=== PATIENT | male | born 1945 | race Caucasian/White ===

== ENCOUNTER → 2019-06-27 | Outpatient (CLI) | payer MEDICARE, BC ==
[~2019-06-27] MED LIST: AMLO5; ASPI81EC; ATEN25; BUSP10 PO; CEPH500 PO; CITA20; DOXA4 PO; ETOD500; EZET10; IBUP600; MAGNESIUM250 MG PO; MED FOR ANXIETY; Norco 5-325 Ta1 EACH PO; OMEG1CAP30; OXYACE5T PO; TRIHYD; TRIHYD253A PO; Vitamin B Comple1 EA; WELCHOL3.75 GM
[2019-06-27 13:54] LABS: Stool Occult Bld Immuno 1 Negative (NEGATIVE)
== END | disposition home or self-care (01) ==
LOC: OLS 09:00 → LAB SHORT 09:00
PROVIDERS: Nurse Practitioner Family
DX: R19.5 Other fecal abnormalities (principal)
CPT/HCPCS: 82274

== ENCOUNTER 2020-05-28 11:24 | Day surgery (SDC) | payer MEDICARE, BC ==
[~2020-05-28] VITALS: Ht 177.8 cm; Wt 83.8 kg
[~2020-05-28 11:24] MED LIST changes: +ASPI325 PO; +EZET10 PO; +FERROUS SULFAT325 M3 PO; +OMEGA-3 FISH O1 EAC6 PO; +Vitamin B Comple1 EA PO
== END 2020-05-28 13:14 | disposition home or self-care (01) ==
LOC: ORSCSDS 11:24
PROVIDERS: Student in an Organized Health Care Education/Training Program
PROC: 0DB48ZX Excision of Esophagogastric Junction, Via Natural or Artificial Opening Endoscopic, Diagnostic (ICD-10-PCS; principal; 2020-05-28 12:45)
PROC: 0DBK8ZX Excision of Ascending Colon, Via Natural or Artificial Opening Endoscopic, Diagnostic (ICD-10-PCS; principal; 2020-05-28 12:45)
PROC: 0DBN8ZX Excision of Sigmoid Colon, Via Natural or Artificial Opening Endoscopic, Diagnostic (ICD-10-PCS; principal; 2020-05-28 12:45)
PROC: 0DBH8ZX Excision of Cecum, Via Natural or Artificial Opening Endoscopic, Diagnostic (ICD-10-PCS; principal; 2020-05-28 12:45)
DX: K21.9 Gastro-esophageal reflux disease without esophagitis (principal); R13.10 Dysphagia, unspecified; Z12.11 Encounter for screening for malignant neoplasm of colon; Z86.010 Personal history of colon polyps; D12.0 Benign neoplasm of cecum; D12.2 Benign neoplasm of ascending colon; D12.5 Benign neoplasm of sigmoid colon; K44.9 Diaphragmatic hernia without obstruction or gangrene; K22.2 Esophageal obstruction; K64.4 Residual hemorrhoidal skin tags; K57.30 Diverticulosis of large intestine without perforation or abscess without bleeding; Z79.899 Other long term (current) drug therapy; Z79.82 Long term (current) use of aspirin; Z87.891 Personal history of nicotine dependence; I10 Essential (primary) hypertension; Z85.46 Personal history of malignant neoplasm of prostate
CPT/HCPCS: 88305; J2704; J7040; J7120

== ENCOUNTER 2021-05-20 08:09 | Day surgery (SDC) | payer MEDICARE, BC ==
[~2021-05-20] VITALS: Ht 177.8 cm; Wt 89.0 kg
[2021-05-20] MEDS ORDERED: CITALOPRAM HBR10 MG (08:35)
[2021-05-20] MEDS ORDERED: LOSA25 (08:35)
[2021-05-20] MEDS ORDERED: METO25ER (08:35)
[2021-05-20] MEDS ORDERED: ELIQUIS5 M2 (08:36)
[2021-05-20] MEDS ORDERED: OMEP20ER (08:36)
--- NOTE | 2021-05-20 08:43 | NUR ---
05/20/21 0843 Gwendolyn Conteh TETRACAINE AND PLEDGET PLACED IN RIGHT EYE BY [email or web address]
== END 2021-05-20 09:20 | disposition home or self-care (01) ==
LOC: ORSCSDS 08:09
PROVIDERS: Ophthalmology
PROC: 08RJ3JZ Replacement of Right Lens with Synthetic Substitute, Percutaneous Approach (ICD-10-PCS; principal; 2021-05-20 09:30)
DX: H25.13 Age-related nuclear cataract, bilateral (principal); I10 Essential (primary) hypertension; I48.91 Unspecified atrial fibrillation; E11.9 Type 2 diabetes mellitus without complications; Z79.01 Long term (current) use of anticoagulants; Z87.891 Personal history of nicotine dependence; Z79.899 Other long term (current) drug therapy; Z79.82 Long term (current) use of aspirin
CPT/HCPCS: J2001; J2250; J3010; J3301; J7040; V2632

== ENCOUNTER 2021-06-24 07:44 | Day surgery (SDC) | payer MEDICARE, BC ==
[~2021-06-24] VITALS: Ht 177.8 cm; Wt 89.7 kg
[~2021-06-24 07:44] MED LIST changes: +CITALOPRAM HBR10 MG; +ELIQUIS5 M2; +LOSA25; +METO25ER; +OMEP20ER
[2021-06-24] MEDS ORDERED: ELIQUIS5 M2 PO (08:02)
--- NOTE | 2021-06-24 08:09 | NUR ---
06/24/21 0809 Bk Michel CALL LIGHT WITHIN REACH. PLEDGETT DROPAT 0803, TETRACAINE DROP AT 0800
== END 2021-06-24 09:32 | disposition home or self-care (01) ==
LOC: ORSCSDS 07:44
PROVIDERS: Ophthalmology
PROC: 08RK3JZ Replacement of Left Lens with Synthetic Substitute, Percutaneous Approach (ICD-10-PCS; principal; 2021-06-24 09:00)
DX: H25.12 Age-related nuclear cataract, left eye (principal); I48.91 Unspecified atrial fibrillation; I10 Essential (primary) hypertension; K21.9 Gastro-esophageal reflux disease without esophagitis; Z79.899 Other long term (current) drug therapy; Z79.01 Long term (current) use of anticoagulants
CPT/HCPCS: J2001; J2250; J3010; J3301; J7040; V2632

== ENCOUNTER → 2024-07-25 | Outpatient (CLI) | payer MEDICARE, BC ==
[~2024-07-25] MED LIST changes: +ELIQUIS5 M2 PO
== END | disposition home or self-care (01) ==
LOC: LAB 10:46 → LAB SHORT 10:46
DX: M10.9 Gout, unspecified (principal)
CPT/HCPCS: 84550

== ENCOUNTER → 2025-02-14 | Outpatient (CLI) | payer MEDICARE, BC ==
[2025-02-14 11:45] LABS: BASOPHILS ABSOLUTE AUTO 0.06 K/mm3 (0.00-0.23); BASOPHILS PERCENT AUTO 1 % (0-2); EOSINOPHILS ABSOLUTE AUTO 0.08 K/mm3 (0.00-0.68); EOSINOPHILS PERCENT AUTO 1 % (0-6); Hematocrit 39.8 % (37.0-53.0); Hemoglobin 13.1 g/dL (13.5-17.5); IMMATURE GRAN ABSOLUTE AUTO 0.03 K/mm3 (0.00-0.10); IMMATURE GRAN PERCENT AUTO 0 % (0-1); LYMPHOCYTES ABSOLUTE AUTO 1.08 K/mm3 (0.84-5.20); LYMPHOCYTES PERCENT AUTO 13 % (21-46); MONOCYTES ABSOLUTE AUTO 0.85 K/mm3 (0.16-1.47); MONOCYTES PERCENT AUTO 11 % (4-13); Mean Corpuscular HGB Conc 32.9 g/dL (31.5-36.5); Mean Corpuscular Volume 92 fL (80-100); NEUTROPHILS ABSOLUTE AUTO 5.97 K/mm3 (1.96-9.15); NEUTROPHILS PERCENT AUTO 74 % (41-73); NRBC ABSOLUTE 0.00 K/mm3 (0.00-0.02); NRBC Auto 0.0 /100 WBC (0.0-0.2); Platelet Count 297 K/mm3 (150-400); RDW Coefficient Variation 13.0 % (11.7-14.2); RDW Standard Deviation 44.0 fL (35.1-46.3)
[2025-02-14 12:20] LABS: Alanine Aminotransfer (ALT/SGP 17.0 U/L (12-78); Albumin, Blood 3.5 g/dL (3.4-5.0); Albumin/Globulin Ratio 0.8 (0.8-1.8); Anion Gap 8.0 mmol/L (3-11); Aspartate Aminotrans (AST/SGOT 11.0 U/L (12-37); Bilirubin, Total 0.7 mg/dL (0.1-1.0); Blood Urea Nitrogen 18.0 mg/dL (8-24); CO2, Blood 26.0 mmol/L (21-32); Calcium, Blood 9.4 mg/dL (8.5-10.1); Chloride, Blood 105.0 mmol/L (98-108); Creatinine, Blood 1.01 mg/dL (0.60-1.20); Globulin, Blood 4.2 g/dL (2.2-4.0); Glucose, Blood 171.0 mg/dL (70-99); Potassium, Blood 4.2 mmol/L (3.5-5.5); Sodium, Blood 135.0 mmol/L (136-145); Total Protein, Blood 7.7 g/dL (6.4-8.2)
== END ==
LOC: LAB SHORT 11:40 → LAB 11:40
DX: R10.32 Left lower quadrant pain (principal)
CPT/HCPCS: 80053; 83690; 85025